=== PATIENT | female | born 1960 | race Caucasian/White ===

== ENCOUNTER 2018-05-29 07:21 | Inpatient (IN) | payer OTHER ==
[~2018-05-29] VITALS: Ht 167.6 cm; Wt 49.9 kg
[2018-05-29 07:23] VITALS: BP_SYST 197
[2018-05-29 08:19] LABS: CALCIUM 8.4 mg/dL (8.4-11.0); CREATININE 0.48 mg/dL (0.55-1.30); POTASSIUM 3.6 mmol/L (3.5-5.1)
[2018-05-29 08:22] LABS: PROTHROMBIN TIME 10.1 SECS (9.5-12.5)
[2018-05-29 08:24] LABS: ALBUMIN 2.6 g/dL (3.4-4.8)
[2018-05-29] MEDS ORDERED: cloNIDine HCL 0.1 MG TABLET PO ONE (08:30)
[2018-05-29] MEDS ORDERED: ACETAMINOPHEN 500 MG TABLET PO ONE (08:30)
[2018-05-29 08:37] LABS: BASOPHILS % (AUTO) 0.3 % (0.0-2.0); EOSINOPHILS # (AUTO) 0.4 K/uL (0.0-0.4); EOSINOPHILS % (AUTO) 3.3 % (0.0-4.0); HEMATOCRIT 33.7 % (36-48); HEMOGLOBIN 11.1 g/dL (12.0-16.0); LYMPHOCYTES # (AUTO) 1.1 K/uL (1.0-5.5); LYMPHOCYTES % (AUTO) 10.5 % (20.5-51.5); MEAN CORPUSCULAR HEMOGLOBIN 27 pg (27-31); MEAN CORPUSCULAR HGB CONC 33 % (32-36); MEAN CORPUSCULAR VOLUME 82 fL (79.0-98.0); MONOCYTES # (AUTO) 1.3 K/uL (0.0-1.0); MONOCYTES % (AUTO) 11.5 % (1.7-9.3); NEUTROPHILS # (AUTO) 8.1 K/uL (1.8-7.7); NEUTROPHILS % (AUTO) 74.4 % (40.0-70.0); PLATELET COUNT (AUTO) 431 K/uL (130-430); RED BLOOD CELL COUNT(AUTO) 4.09 MIL/uL (4.2-6.2); RED CELL DISTRIBUTION WIDTH 12.7 % (9.0-15.0); WHITE BLOOD COUNT (AUTO) 10.9 K/uL (4.8-10.8)
[2018-05-29 09:11] LABS: BILIRUBIN,URINE NEGATIVE (NEGATIVE); BLOOD, URINE 2+ (NEGATIVE); CLARITY/URINE CLEAR (CLEAR); COLOR,URINE YELLOW (YELLOW); GLUCOSE,URINE NEGATIVE (NEGATIVE); KETONES,URINE NEGATIVE (NEGATIVE); LEUKOCYTE ESTERASE ,URINE TRACE (NEGATIVE); NITRITE, URINE NEGATIVE (NEGATIVE); PROTEIN URINE NEGATIVE (NEGATIVE); UROBILINOGEN,URINE 0.2 (0.2-1.0)
[2018-05-29 09:20] LABS: BACTERIA,URINE FEW /HPF (None Seen); MUCUS,URINE None Seen /LPF (None Seen); WBC,URINE 0-3 /HPF (0-3)
[2018-05-29] MEDS ORDERED: HYDROcodone/ACETAMIN 5-325 MG TAB (NORCO/ VICODIN) PO PRN (10:15)
[2018-05-29] MEDS ORDERED: HYDROcodone/ACETAMIN 10-325 MG TAB PO PRN (10:15)
[2018-05-29] MEDS ORDERED: ACETAMINOPHEN 325 MG TABLET PO PRN (10:15)
[2018-05-29 10:42] LABS: BARBITURATE, URINE NEGATIVE (NEG <=200); BENZODIAZEPINE, URINE NEGATIVE (NEG <=150); CANNABINOID, URINE NEGATIVE (NEG <=50); COCAINE, URINE NEGATIVE (NEG <=150); METHAMPHETAMINES SCREEN,URINE NEGATIVE (NEG <=500); OPIATE, URINE NEGATIVE (NEG <=100); PHENCYCLIDINE SCREEN,URINE NEGATIVE (NEG <=25); UR TRICYCLIC ANTIDEPRESSANTS NEGATIVE (NEG <=300); URINE AMPHETAMINE NEGATIVE (NEG <=500); URINE METHADONE NEGATIVE (NEG <=200); URINE OXYCODONE SCREEN NEGATIVE (NEG <=100); URINE PROPOXYPHENE SCREEN NEGATIVE (NEG <=300)
[2018-05-29] MEDS ORDERED: IBUPROFEN 600 MG TABLET PO ONE (10:45)
[2018-05-29 11:22] VITALS: BP_SYST 127
[2018-05-29] MEDS ORDERED: ONDANSETRON HCL 4 MG/2 ML VIAL IVP PRN (13:30)
[2018-05-29 15:13] VITALS: BP_SYST 108
[2018-05-29 20:00] VITALS: BP_SYST 148
[2018-05-30 07:16] LABS: BASOPHILS # (AUTO) 0.1 K/uL (0.0-0.2); BASOPHILS % (AUTO) 0.6 % (0.0-2.0); EOSINOPHILS # (AUTO) 0.9 K/uL (0.0-0.4); HEMATOCRIT 30.9 % (36-48); HEMOGLOBIN 10.1 g/dL (12.0-16.0); LYMPHOCYTES # (AUTO) 1.4 K/uL (1.0-5.5); MEAN CORPUSCULAR HEMOGLOBIN 27 pg (27-31); MEAN CORPUSCULAR HGB CONC 33 % (32-36); MEAN CORPUSCULAR VOLUME 83 fL (79.0-98.0); MONOCYTES # (AUTO) 1.1 K/uL (0.0-1.0); MONOCYTES % (AUTO) 12.2 % (1.7-9.3); NEUTROPHILS # (AUTO) 5.2 K/uL (1.8-7.7); NEUTROPHILS % (AUTO) 61.2 % (40.0-70.0); PLATELET COUNT (AUTO) 451 K/uL (130-430); RED BLOOD CELL COUNT(AUTO) 3.73 MIL/uL (4.2-6.2); RED CELL DISTRIBUTION WIDTH 12.9 % (9.0-15.0); WHITE BLOOD COUNT (AUTO) 8.7 K/uL (4.8-10.8)
[2018-05-30 07:23] LABS: ALBUMIN 2.4 g/dL (3.4-4.8); CALCIUM 8.4 mg/dL (8.4-11.0); CREATININE 0.6 mg/dL (0.55-1.30); POTASSIUM 3.2 mmol/L (3.5-5.1); THYROID STIMULATING HORMONE 1.75 uIu/mL (0.34-4.82); TOTAL BILIRUBIN 0.7 mg/dL (0.0-1.0)
[2018-05-30 07:51] LABS: TOTAL IRON BIND. CAPACITY 232 ug/dL (250-450)
[2018-05-30 08:16] VITALS: BP_SYST 147
[2018-05-30 08:32] LABS: ERYTHROCYTE SEDIMENTATION RATE 102 MM/HR (0-20)
[2018-05-30 12:18] VITALS: BP_SYST 150
[2018-05-30] MEDS ORDERED: FERROUS SULFATE 325 MG TABLET.DR PO ONE (16:00)
[2018-05-30] MEDS ORDERED: MULTIVITAMINS TAB 1 TABLET PO ONE (16:00)
[2018-05-30 16:10] VITALS: BP_SYST 135
[2018-05-30 20:00] VITALS: BP_SYST 155
[2018-05-30] MEDS: FERROUS SULFATE 325 MG TABLET.DR PO SCH (20:58)
[2018-05-30] MEDS: MULTIVITAMINS TAB 1 TABLET PO SCH (20:58)
[2018-05-31 01:07] VITALS: BP_SYST 160
[2018-05-31 08:00] VITALS: BP_SYST 148
[2018-05-31] MEDS: FERROUS SULFATE 325 MG TABLET.DR PO SCH ×2 (09:03→21:54)
[2018-05-31] MEDS: MULTIVITAMINS TAB 1 TABLET PO SCH ×2 (09:03→21:54)
[2018-05-31 12:42] VITALS: BP_SYST 141
[2018-05-31 20:00] VITALS: BP_SYST 147
[2018-05-31] MEDS: MUPIROCIN NASAL 2% OINT. NS SCH (21:55)
[2018-06-01 00:18] VITALS: BP_SYST 169
[2018-06-01 08:00] VITALS: BP_SYST 121
[2018-06-01] MEDS: FERROUS SULFATE 325 MG TABLET.DR PO SCH ×3 (08:58→21:00)
[2018-06-01] MEDS: MULTIVITAMINS TAB 1 TABLET PO SCH ×2 (08:58→21:00)
[2018-06-01] MEDS: ARIPiprazole 5 MG TAB PO SCH ×2 (08:58→09:00)
[2018-06-01] MEDS: MUPIROCIN NASAL 2% OINT. NS SCH ×2 (09:00→21:00)
[2018-06-01 11:32] VITALS: BP_SYST 123
[2018-06-01 15:31] VITALS: BP_SYST 145
[2018-06-01] MEDS ORDERED: PERMETHRIN 5% 60 GM CREAM.GM. TP ONE (16:00)
[2018-06-02 08:06] VITALS: BP_SYST 144
[2018-06-02] MEDS: MULTIVITAMINS TAB 1 TABLET PO SCH (08:44)
[2018-06-02] MEDS: FERROUS SULFATE 325 MG TABLET.DR PO SCH (08:44)
[2018-06-02] MEDS: MUPIROCIN NASAL 2% OINT. NS SCH (08:45)
[2018-06-02] MEDS: ARIPiprazole 5 MG TAB PO SCH (08:57)
[2018-06-02 11:28] VITALS: BP_SYST 141
[2018-06-02 12:09] VITALS: BP_SYST 141
== END 2018-06-02 14:55 | disposition home or self-care (01) | DRG 346 ==
LOC: SED 07:21 → SMU 10:12
PROVIDERS: ADMIT Internal Medicine; ATTEND Internal Medicine
DX: M06.9 Rheumatoid arthritis, unspecified (principal); E43 Unspecified severe protein-calorie malnutrition; F20.9 Schizophrenia, unspecified; B85.0 Pediculosis due to Pediculus humanus capitis; D50.9 Iron deficiency anemia, unspecified; F29 Unspecified psychosis not due to a substance or known physiological condition; F32.9 Major depressive disorder, single episode, unspecified; I10 Essential (primary) hypertension; Z59.0 Homelessness; Z22.322 Carrier or suspected carrier of Methicillin resistant Staphylococcus aureus
CPT/HCPCS: 36415; 70450-TC; 80053; 80307; 81000-TC; 83540-TC; 83550-TC; 84439; 84443-TC; 85025; 85610-TC; 85651-TC; 85730-TC; 86140; 86710; 87081; 99285

== ENCOUNTER 2019-05-26 21:56 | Emergency (ER) | payer OTHER ==
[~2019-05-26] VITALS: Ht 167.6 cm; Wt 68.9 kg
[2019-05-26 22:00] VITALS: BP_SYST 162
--- NOTE | 2019-05-26 22:12 | NUR ---
[facility] up. Report given to ALYX ARCHIBALD.
--- NOTE | 2019-05-26 22:15 | NUR ---
Pt was BIB for right knee pain x 3 days. Pt states that she took Tylenol with minor relief. Noted swelling to right knee. No other injuries/complaints per patient or noted.
--- NOTE | 2019-05-26 22:45 | NUR ---
Iggy Pink at bedside examining patient.
[2019-05-26] MEDS ORDERED: KETOROLAC TROMETHAMINE 60 MG/2 ML VIAL IM ONE (23:00)
--- NOTE | 2019-05-26 23:19 | NUR ---
Patient refused medication. Dr. Pink made aware.
[2019-05-27 00:25] VITALS: BP_SYST 145
--- NOTE | 2019-05-27 00:25 | NUR ---
dPatient given written and verbal discharge instructions and verbalizes understanding. ER MD discussed with patient the results and treatment provided. Patient in stable condition. ID arm band removed. Rx of Ibuprofen given. Patient educated on pain management and to follow up with PMD. Pain Scale 0. Opportunity for questions provided and answered. Medication side effect fact sheet provided.
== END 2019-05-27 00:25 | disposition home or self-care (01) ==
LOC: SED 21:56
DX: M17.11 Unilateral primary osteoarthritis, right knee (principal); I10 Essential (primary) hypertension; Z87.39 Personal history of other diseases of the musculoskeletal system and connective tissue; Z88.6 Allergy status to analgesic agent
CPT/HCPCS: 73564; 99283